=== PATIENT | female | born 1955 | race Caucasian/White ===

== ENCOUNTER 2021-10-12 17:36 | Emergency (ER) | payer MEDICARE ==
[~2021-10-12] VITALS: Ht 160 cm; Wt 85.9 kg
[2021-10-12 18:01] VITALS: TEMP 98.3
[2021-10-12] MEDS ORDERED: ALBUTEROL0.83 MG/ML IH ×2 (20:54→20:55)
[2021-10-12 21:08] VITALS: BP 144/78; PULSE 76
== END 2021-10-12 21:08 | disposition home or self-care (01) ==
LOC: COL.ER 17:36
DX: U07.1 COVID-19 (principal); J45.909 Unspecified asthma, uncomplicated; E11.9 Type 2 diabetes mellitus without complications
CPT/HCPCS: J8540